=== PATIENT | female | born 1980 | race African-American/Black ===

== ENCOUNTER 2022-03-25 16:35 | Emergency (ER) | payer OTHER ==
[~2022-03-25] VITALS: Ht 170.2 cm; Wt 156.5 kg
[2022-03-25] MEDS ORDERED: GLUCAGON HYDROCHLORIDE (RDNA) 1 MG VIAL IM ONE (18:30)
[2022-03-25] MEDS ORDERED: NITROGLYCERIN 0.4 MG SL TAB SL ONE (18:30)
[2022-03-25 19:54] VITALS: BP 116/63
== END 2022-03-25 20:19 | disposition home or self-care (01) ==
LOC: ER 16:35
DX: S10.15XA Superficial foreign body of throat, initial encounter (principal); X58.XXXA Exposure to other specified factors, initial encounter; Y93.9 Activity, unspecified; Y92.89 Other specified places as the place of occurrence of the external cause; Y99.8 Other external cause status
CPT/HCPCS: 70490; 96372; 99284; J1610